=== PATIENT | female | born 1985 | race Caucasian/White ===

== ENCOUNTER 2017-02-09 09:16 | Emergency (ER) | payer BC ==
[2017-02-09 09:30] VITALS: TEMP 98.2; BMI 27.3
--- NOTE | 2017-02-09 09:49 | PDOC ---
History of Present Illness - General History Source: Patient Exam Limitations: No Limitations - History of Present Illness Initial Comments: CHIEF COMPLAINT: 31 y/o afebrile female with PMH anxiety here for admission to detox for alcohol. HISTORY OF PRESENT ILLNESS: The patient states she's had an alcoholic beverage every night for the past 6 months. The patient states she lost her job 2 weeks ago and is now drinking at least 1 bottle of alcohol per night. She is here because she would like detox for alcohol. She is a single mom and does not want to spiral out of control. She denies f/c, n/v/d, tremors, dizziness, DERAS, CP, SOB, palpitations, abd pain, back pain, hematuria, dysuria, seizures, suicidal ideations, homicidal ideations. She has never been to detox in the past and she has never been to an inpatient psychiatric facility in the past. She does see a psychiatrist regularly for her anxiety medications. Vital signs on arrival are within normal limits. REVIEW OF SYSTEMS: GENERAL/CONSTITUTIONAL: No fever/chills. No weakness. No weight change. HEAD, EYES, EARS, NOSE AND THROAT: No change in vision. No ear pain or discharge. No sore throat. CARDIOVASCULAR: No chest pain or shortness of breath. RESPIRATORY: No cough, wheezing, or hemoptysis. GASTROINTESTINAL: No abd pain, nausea, vomiting, diarrhea. GENITOURINARY: No dysuria, frequency, or change in urination. MUSCULOSKELETAL: No joint or muscle swelling or pain. No neck or back pain. SKIN: No rash or easy bruising. NEUROLOGIC: No headache, vertigo, loss of consciousness, or loss of sensation. PHYSICAL EXAM: GENERAL: The patient is awake, alert, and fully oriented, in no acute distress. She is very well appearing, ambulatory, in NAD or obvious discomfort. HEAD: Normal with no signs of trauma. ENT: Pupils equal, round and reactive to light, extraocular movements intact, sclera anicteric, conjunctiva clear. Neck supple. LUNGS: Clear to auscultation bilaterally. Normal excursion. No respiratory distress or use of accessory muscles. CV: RRR, S1/S2, no MRG. Cap refill < 2 sec. ABDOMEN: Soft, non-distended, non-tender even to deep palpation, no hepatomegaly or splenomegaly, no masses. EXTREMITIES: Normal range of motion, no edema. NEUROLOGICAL: Normal speech, normal gait. CN II-XII grossly intact. PSYCH: Normal mood, normal affect. SKIN: Warm, dry, normal turgor, no rashes or lesions noted. <Cindy Knight - Last Filed: 02/09/17 10:55> <Ashu Sharma - Last Filed: 02/12/17 07:45> - General Chief Complaint: Substance Abuse Stated Complaint: DETOX Time Seen by Provider: 02/09/17 09:40 Past History - Past Medical History Asthma: Yes Psychiatric Problems: Yes (ANXIETY,DEPRESSION) - Psycho/Social/Smoking Cessation Hx Suicidal Ideation: No Smoking History: Former smoker Have you smoked in the past 12 months: Yes Information on smoking cessation initiated: No Hx Alcohol Use: Yes (12 PACK OF BEER AND 1 BOTTLE OF WINE DAILYX2 WEEKS) Substance Use Type: Alcohol <Cindy Knight - Last Filed: 02/09/17 10:55> <Ashu Sharma - Last Filed: 02/12/17 07:45> - Past Medical History Allergies/Adverse Reactions: Allergies Allergy/AdvReac Type Severity Reaction Status Date / Time No Known Allergies Allergy Verified 02/09/17 09:23 Home Medications: Ambulatory Orders Alprazolam [Xanax] 1 mg PO QID 02/09/17 Escitalopram Oxalate [Lexapro -] 15 mg PO DAILY 02/09/17 Propranolol HCl 10 mg PO DAILY 02/09/17 *Physical Exam - Vital Signs Last Vital Signs Temp Pulse Resp BP Pulse Ox 98.2 F 69 19 121/63 99 02/09/17 09:23 02/09/17 09:23 02/09/17 09:23 02/09/17 09:23 02/09/17 09:23 <Cindy Knight - Last Filed: 02/09/17 10:55> - Vital Signs Last Vital Signs Temp Pulse Resp BP Pulse Ox 98.2 F 51 L 18 109/77 100 02/09/17 09:23 02/09/17 11:14 02/09/17 11:14 02/09/17 11:14 02/09/17 11:14 <Ashu Sharma - Last Filed: 02/12/17 07:45> ED Treatment Course - ADDITIONAL ORDERS Additional order review: 02/09/17 10:50 Urine Culture - Final Urine - Urine Clean Catch Lactobacillus Species <Ashu Sharma - Last Filed: 02/12/17 07:45> Medical Decision Making - Medical Decision Making A/P: 31 y/o afebrile female here for alcohol detox. Normal exam. Plan is as follows: 1. UA/hcg/culture/tox [facility]. [facility] do have female beds. Must be cleared by Dr. Coello first at [phone]. Left a message for Dr. Coello at 10:10am. Called Dr. Coello back and he accepts the patient for detox. Spoke with [facility] again and they said we can send her over. Will discharge and our security will escort the patient over to detox. <Cindy Knight - Last Filed: 02/09/17 10:55> - Medical Decision Making 02/12/17 07:45 The patient was seen and evaluated in conjunction with ANALI Knight under my direct supervision, ancillary studies were reviewed. I agree with the plan as outlined by ANALI Knight . <Ashu Sharma - Last Filed: 02/12/17 07:45> *DC/Admit/Observation/Transfer <Cindy Knight - Last Filed: 02/09/17 10:55> <Ashu Sharma - Last Filed: 02/12/17 07:45> Diagnosis at time of Disposition: Alcohol abuse Alcohol dependence Qualifiers: Substance use status: uncomplicated Qualified Code(s): F10.20 - Alcohol dependence, uncomplicated - Discharge Dispostion Disposition: I.P. ALCOHOL/SUBS ABUSE REHAB Condition at time of disposition: Good - Patient Instructions Printed Discharge Instructions: DI for Alcohol Abuse
[2017-02-09 11:04] LABS: URINE APPEARANCE CLEAR; URINE BILIRUBIN NEGATIVE (NEGATIVE); URINE BLOOD NEGATIVE (NEGATIVE); URINE COLOR STRAW; URINE GLUCOSE (UA) NEGATIVE (NEGATIVE); URINE KETONE NEGATIVE (NEGATIVE); URINE NITRITE NEGATIVE (NEGATIVE); URINE PROTEIN NEGATIVE (NEGATIVE); URINE UROBILINOGEN NEGATIVE E.U./dl (0.2-1.0)
[2017-02-09 11:06] LABS: URINE LEUK ESTERASE 3+ (NEGATIVE)
[2017-02-09 11:09] LABS: URINE BACTERIA MODERATE /hpf (NONE SEEN); URINE RBC 1 /hpf (0-3); URINE WBC 7 /hpf (3-5)
[2017-02-09 11:15] VITALS: BP 109/77; PULSE 51
[2017-02-09 12:06] LABS: URINE MARIJUANA THC NEGATIVE ng/ml (CUTOFF=50)
== END 2017-02-09 11:14 | disposition other institution (70) ==
LOC: JER 09:16
DX: F10.20 Alcohol dependence, uncomplicated (principal); F41.8 Other specified anxiety disorders; J45.909 Unspecified asthma, uncomplicated
CPT/HCPCS: 80307; 81003; 81015; 84703; 87077; 87086; 99282-25

== ENCOUNTER 2017-02-09 11:43 | Inpatient (IN) | payer BC, OTHER ==
[2017-02-09 15:02] VITALS: BMI 27.3
--- NOTE | 2017-02-09 16:16 | HP ---
CIWA Score - CIWA Score Nausea/Vomitin-Mild Nausea/No Vomiting Muscle Tremors: 4-Moderate,w/Arms Extend Anxiety: 3 Agitation: 4-Moderately Restless Paroxysmal Sweats: 3 Orientation: 0-Oriented Tacttile Disturbances: 0-None Auditory Disturbances: 0-None Visual Disturbances: 0-None Headache: 2-Mild CIWA-Ar Total Score: 17 Admission ROS BHS - HPI Chief Complaint: I am here to get detox and get the help I need. Allergies/Adverse Reactions: Allergies Allergy/AdvReac Type Severity Reaction Status Date / Time No Known Allergies Allergy Verified 02/09/17 15:49 History of Present Illness: pt is a31yr old female with a history of alcohol and xanax dependence seeking detox for treatment. Exam Limitations: No Limitations - Ebola screening Have you traveled outside of the country in the last 21 days: No Have you had contact with anyone from an Ebola affected area: No Have you been sick,other than usual withdrawal symptoms: No Do you have a fever: No - Review of Systems Constitutional: Chills, Diaphoresis, Loss of Appetite, Night Sweats, Unintentional Wgt. Loss EENT: reports: Nose Congestion Respiratory: reports: No Symptoms reported, Cough Cardiac: reports: No Symptoms Reported GI: reports: Diarrhea, Poor Appetite, Poor Fluid Intake, Indigestion, Other (IBS ) : reports: No Symptoms Reported Musculoskeletal: reports: Back Pain Integumentary: reports: Bruising, Flushing, Sweating Neuro: reports: Headache, Tingling, Tremors Endocrine: reports: Excessive Sweating, Flushing, Intolerance to Cold, Intolerance to Heat Hematology: reports: No Symptoms Reported Psychiatric: reports: Judgement Intact, Mood/Affect Appropiate, Orientated x3, Agitated, Anxious Other Systems: Reviewed and Negative Patient History - Patient Medical History Hx Anemia: No Hx Asthma: No Hx Chronic Obstructive Pulmonary Disease (COPD): No Hx Cancer: No Hx Cardiac Disorders: No Hx Congestive Heart Failure: No Hx Hypertension: No Hx Hypercholesterolemia: No Hx Pacemaker: No HX Cerebrovascular Accident: No Hx Seizures: No Hx Diabetes: No Hx Gastrointestinal Disorders: Yes (IBS) Hx Liver Disease: No Hx Genitourinary Disorders: No Hx Sexually Transmitted Disorders: No Hx Renal Disease (ESRD): No Hx Thyroid Disease: No Hx Human Immunodeficiency Virus (HIV): No (negative) Hx Hepatitis C: No (negative) Hx Depression: No Hx Suicide Attempt: No (denies) Hx Bipolar Disorder: No Hx Schizophrenia: No Other Medical History: anxiety - Patient Surgical History Past Surgical History: No Hx Neurologic Surgery: No Hx Cataract Extraction: No Hx Cardiac Surgery: No Hx Lung Surgery: No Hx Breast Surgery: Yes (breast augmentation due to breast infection 01/2016) Hx Breast Biopsy: No Hx Abdominal Surgery: No Hx Appendectomy: No Hx Cholecystectomy: No Hx Genitourinary Surgery: No Hx Section: No Hx Orthopedic Surgery: No Anesthesia Reaction: No - PPD History Previous Implant?: Yes Documented Results: Negative w/o proof Implanted On Prior R Admission?: No PPD to be Administered?: Yes - Reproductive History Patient is a Female of Child Bearing Age (11 -55 yrs old): No Last Menstrual Period: 01/26/17 Patient : No - Smoking Cessation Smoking history: Current every day smoker Have you smoked in the past 12 months: Yes Aproximately how many cigarettes per day: 1 Hx Chewing Tobacco Use: No Initiated information on smoking cessation: Yes 'Breaking Loose' booklet given: 02/09/17 - Substance & Tx. History Hx Alcohol Use: Yes Hx Substance Use: Yes Substance Use Type: Alcohol, Prescribed, Tranquilizers Hx Substance Use Treatment: Yes - Substances Abused Alcohol-beer/wine/whisky Route: Oral Frequency: Daily Amount used: 2-6 pks./1 pt. Age of first use: 20 Date of Last Use: 02/08/17 Family Disease History - Family Disease History Family History: Denies Admission Physical Exam BHS - Vital Signs Vital Signs: Vital Signs - 24 hr 02/09/17 15:00 Temperature 96.9 F L Pulse Rate 75 Respiratory 20 Rate Blood Pressure 103/67 - Physical General Appearance: Yes: No Apparent Distress, Appropriately Dressed, Tremorous , Irritable, Sweating, Anxious HEENTM: Yes: Hearing grossly Normal, Nasal Congestion, Rhinorrhea Respiratory: Yes: Lungs Clear, Normal Breath Sounds, No Respiratory Distress Neck: Yes: No masses,lesions,Nodules Breast: Yes: Within Normal Limits Cardiology: Yes: Regular Rhythm, Regular Rate, S1, S2 Abdominal: Yes: Normal Bowel Sounds, Non Tender, Soft Genitourinary: Yes: Within Normal Limits Back: Yes: Normal Inspection Musculoskeletal: Yes: full range of Motion, Back pain Extremities: Yes: Normal Capillary Refill, Non-Tender, Tremors Neurological: Yes: Fully Oriented, Alert, Normal Response Integumentary: Yes: Normal Color, Diaphoresis Lymphatic: Yes: Within Normal Limits - Diagnostic (1) Alcohol dependence with uncomplicated withdrawal Current Visit: Yes Status: Chronic (2) Nicotine dependence Current Visit: Yes Status: Chronic Qualifiers: Nicotine product type: cigarettes Substance use status: uncomplicated Qualified Code(s): F17.210 - Nicotine dependence, cigarettes, uncomplicated (3) Anxiety Current Visit: Yes Status: Chronic Cleared for Admission [facility] - Detox or Rehab [facility] Level of Care: Medically Managed Detox Regimen/Protocol: Librium [facility] Breath Alcohol Content Breath Alcohol Content: 0 Urine Pregancy Test - Result Urine Test Results: Negative- NO Line Present Urine Drug Screen - Results Drug Screen Negative: No Urine Drug Screen Results: BZO-Benzodiazepines
[2017-02-09] MEDS ORDERED: MAG HYDROX/AL HYDROX/SIMETH 30 ML UNIT-DOSE CUP PO PRN (16:27)
[2017-02-09] MEDS ORDERED: hydrOXYzine PAMOATE 50 MG CAPSULE (FP) PO PRN (16:27)
[2017-02-09] MEDS ORDERED: P-EPHED 60MG/TRIPROLIDI 2.5MG TABLET PO PRN (16:27)
[2017-02-09] MEDS ORDERED: MENTHOL/PHENOL 1 EACH UD MM PRN (16:27)
[2017-02-09] MEDS ORDERED: guaiFENesin/D-METHORPHAN HB 10 ML UNIT-DOSE CUPS PO PRN (16:27)
[2017-02-09] MEDS ORDERED: ACETAMINOPHEN 325 MG TABLET (FP) PO PRN (16:27)
[2017-02-09] MEDS ORDERED: IBUPROFEN 400 MG TABLET (FP) PO PRN (16:27)
[2017-02-09] MEDS ORDERED: chlordiazePOXIDE HCL 25 MG CAPSULE PO PRN (16:27)
[2017-02-09] MEDS ORDERED: MAGNESIUM HYDROX 2400MG/30ML ORAL SUSPENSION 30 ML CUP PO PRN (16:27)
[2017-02-09] MEDS ORDERED: LOPERAMIDE HCL 2 MG CAPSULE PO PRN (16:27)
[2017-02-09] MEDS ORDERED: MAGNESIUM CITRATE 300 ML BOTTLE PO PRN (16:27)
[2017-02-09] MEDS ORDERED: chlordiazePOXIDE HCL 25 MG CAPSULE PO ONE (17:45)
[2017-02-09] MEDS: chlordiazePOXIDE HCL 25 MG CAPSULE PO SCH ×2 (19:19→22:35)
[2017-02-09] MEDS ORDERED: THIAMINE HCL 100 MG TABLET (FP) PO SCH (22:00)
[2017-02-09] MEDS ORDERED: diphenhydrAMINE HCL 50 MG CAPSULE PO PRN (22:00)
[2017-02-09] MEDS: NICOTINE POLACRILEX 4 MG GUM BUC PRN (22:43)
[2017-02-09 23:04] LABS: URINE APPEARANCE CLEAR; URINE BILIRUBIN NEGATIVE (NEGATIVE); URINE BLOOD NEGATIVE (NEGATIVE); URINE COLOR STRAW; URINE GLUCOSE (UA) NEGATIVE (NEGATIVE); URINE KETONE NEGATIVE (NEGATIVE); URINE NITRITE NEGATIVE (NEGATIVE); URINE PROTEIN NEGATIVE (NEGATIVE); URINE UROBILINOGEN NEGATIVE E.U./dl (0.2-1.0)
[2017-02-09 23:07] LABS: URINE LEUK ESTERASE 1+ (NEGATIVE)
[2017-02-09 23:10] LABS: URINE BACTERIA FEW /hpf (NONE SEEN); URINE RBC 1 /hpf (0-3); URINE WBC 42 /hpf (3-5)
[2017-02-10] MEDS: chlordiazePOXIDE HCL 25 MG CAPSULE PO SCH ×2 (07:02→10:57)
[2017-02-10] MEDS: NICOTINE POLACRILEX 4 MG GUM BUC PRN ×3 (07:04→14:45)
[2017-02-10] MEDS ORDERED: PRENATAL VITAMINS W/ FOLIC ACID TABLET (FP) PO SCH (10:00)
[2017-02-10] MEDS ORDERED: NICOTINE 7 MG/24 HOURS TOPICAL PATCH TD SCH (10:00)
[2017-02-10 10:19] LABS: MCHC 33.9 g/dl (32.0-36.0); MEAN CELL VOLUME 91.5 fl (80-96); MEAN PLT VOLUME 7.6 fl (7.5-11.1); PLATELET COUNT 342 K/MM3 (134-434); RDW 12.3 % (11.6-15.6); WHITE BLOOD COUNT 6.6 K/mm3 (4.0-10.0)
[2017-02-10 10:44] LABS: ALK PHOS 86 U/L (45-117); ANION GAP 9 (8-16); BILIRUBIN,TOTAL 0.7 mg/dL (0.2-1.0); CALCIUM 9.6 mg/dL (8.5-10.1); CO2 30 mmol/L (21-32); COCKROFT - GAULT 118.8725; CREATININE 0.9 mg/dL (0.55-1.02); GLUCOSE,RANDOM 123 mg/dL (74-106); SGOT/AST 18 U/L (15-37); SGPT/ALT 34 U/L (12-78); TOT PROT 7.4 g/dl (6.4-8.2)
--- NOTE | 2017-02-10 14:07 | CONSULT ---
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 Substance Abuse History: - Smoking Cessation. Smoking history: Current every day smoker. Have you smoked in the past 12 months: Yes. Aproximately how many cigarettes per day: 1. Hx Chewing Tobacco Use: No. Initiated information on smoking cessation: Yes. 'Breaking Loose' booklet given: 02/09/17. - Substance & Tx. History. Hx Alcohol Use: Yes. Hx Substance Use: Yes. Substance Use Type : Alcohol, Prescribed, Tranquilizers. Hx Substance Use Treatment: Yes. - Substances Abused. Alcohol-beer/wine/whisky. Route: Oral. Frequency: Daily. Amount used: 2-6 pks./1 pt. Age of first use: 20. Date of Last Use: . Confirmed by patient. Medical History: History of irritable bowel syndrome. Psychiatric History: No history of psychiatric hospitalizations.Ms Coronel has been disagnosed with MDD and Anxiety Disorder.She sees a private psychiatrist for medication management (lexapro 15 mg/day + xanax 1 mg po qid + propanolol 10 mg po bid).Patient states that she has made the decision to abstain from taking psychotropic medications.She denies history of suicide attempts. Physical/Sexual Abuse/Trauma History: Patient denies. Additional Comment: Urine Drug Screen Results: BZO-Benzodiazepines.Noted. Mental Status Exam - Mental Status Exam Alert and Oriented to: Time, Place, Person Cognitive Function: Good Patient Appearance: Well Groomed Mood: Hopeful, Euthymic Affect: Appropriate, Normal Range Patient Behavior: Fatigued, Appropriate, Cooperative Speech Pattern: Clear Voice Loudness: Normal Thought Process: Intact, Goal Oriented Thought Disorder: Not Present Hallucinations: Denies Suicidal Ideation: Denies Homicidal Ideation: Denies Insight/Judgement: Poor Sleep: Fair Appetite: Good Muscle strength/Tone: Normal Gait/Station: Normal Psychiatric Findings - Problem List ([place] 1, 2,3) (1) Alcohol dependence with uncomplicated withdrawal Current Visit: Yes Status: Acute (2) Nicotine dependence Current Visit: Yes Status: Acute Qualifiers: Nicotine product type: cigarettes Substance use status: uncomplicated Qualified Code(s): F17.210 - Nicotine dependence, cigarettes, uncomplicated (3) Anxiety disorder Current Visit: Yes Status: Chronic (4) Depressive disorder Current Visit: Yes Status: Chronic (5) Insomnia Current Visit: Yes Status: Acute - Initial Treatment Plan Initial Treatment Plan: Psychoeducation.Detoxification.Patient declines to take any hypnotic or psychotropic medication.Observation.
[2017-02-10 14:40] VITALS: BP 111/61; PULSE 74; TEMP 97.9
--- NOTE | 2017-02-10 15:05 | PN ---
[facility] CIWA - CIWA Score Nausea/Vomitin Muscle Tremors: 3 Anxiety: 3 Agitation: 2 Paroxysmal Sweats: 1-Minimal Palms Moist Orientation: 0-Oriented Tacttile Disturbances: 1-Very Mild Itch/Numbness Auditory Disturbances: 1-Very Mild Visual Disturbances: 1-Very Mild Sensitivity Headache: 2-Mild CIWA-Ar Total Score: 17 S Progress Note (SOAP) Subjective: ALERT,IRRITABLE,ANXIOUS,INTERRUPTED SLEEP,TREMOR, Objective: 02/10/17 15:02 Vital Signs Temperature 97.9 F 02/10/17 14:39 Pulse Rate 74 02/10/17 14:39 Respiratory Rate 16 02/10/17 14:39 Blood Pressure 111/61 02/10/17 14:39 O2 Sat by Pulse Oximetry (%) EKG SINUS BRADYCARDIA RATE 50/MIN,INVERTED T IN V1,V2 NO CHEST AIN,NO SOB,NO DIZZINESS Laboratory Last Values WBC 6.6 K/mm3 (4.0-10.0) 02/10/17 06:05 RBC 4.38 M/mm3 (3.60-5.2) 02/10/17 06:05 Hgb 13.6 GM/dL (10.7-15.3) 02/10/17 06:05 Hct 40.0 % (32.4-45.2) 02/10/17 06:05 MCV 91.5 fl (80-96) 02/10/17 06:05 MCHC 33.9 g/dl (32.0-36.0) 02/10/17 06:05 RDW 12.3 % (11.6-15.6) 02/10/17 06:05 Plt Count 342 K/MM3 (134-434) 02/10/17 06:05 MPV 7.6 fl (7.5-11.1) 02/10/17 06:05 Sodium 141 mmol/L (136-145) 02/10/17 06:05 Potassium 5.0 mmol/L (3.5-5.1) 02/10/17 06:05 Chloride 102 mmol/L (98-107) 02/10/17 06:05 Carbon Dioxide 30 mmol/L (21-32) 02/10/17 06:05 Anion Gap 9 (8-16) 02/10/17 06:05 BUN 13 mg/dL (7-18) 02/10/17 06:05 Creatinine 0.9 mg/dL (0.55-1.02) 02/10/17 06:05 Creat Clearance w eGFR > 60 (>60) 02/10/17 06:05 Random Glucose 123 mg/dL (74-106) H 02/10/17 06:05 Calcium 9.6 mg/dL (8.5-10.1) 02/10/17 06:05 Total Bilirubin 0.7 mg/dL (0.2-1.0) 02/10/17 06:05 AST 18 U/L (15-37) 02/10/17 06:05 ALT 34 U/L (12-78) 02/10/17 06:05 Alkaline Phosphatase 86 U/L (45-117) 02/10/17 06:05 Total Protein 7.4 g/dl (6.4-8.2) 02/10/17 06:05 Albumin 4.0 g/dl (3.4-5.0) 02/10/17 06:05 Urine Color Straw 02/09/17 20:33 Urine Appearance Clear 02/09/17 20:33 Urine pH 8.0 (5.0-8.0) 02/09/17 20:33 Urine Protein Negative (NEGATIVE) 02/09/17 20:33 Urine Glucose (UA) Negative (NEGATIVE) 02/09/17 20:33 Urine Ketones Negative (NEGATIVE) 02/09/17 20:33 Urine Blood Negative (NEGATIVE) 02/09/17 20:33 Urine Nitrite Negative (NEGATIVE) 02/09/17 20:33 Urine Bilirubin Negative (NEGATIVE) 02/09/17 20:33 Urine Urobilinogen Negative E.U./dl (0.2-1.0) 02/09/17 20:33 Ur Leukocyte Esterase 1+ (NEGATIVE) H D 02/09/17 20:33 Urine RBC 1 /hpf (0-3) 02/09/17 20:33 Urine WBC 42 /hpf (3-5) 02/09/17 20:33 Ur Epithelial Cells Rare /hpf (FEW) 02/09/17 20:33 Urine Bacteria Few /hpf (NONE SEEN) 02/09/17 20:33 RPR Titer Nonreactive (NONREACTIVE) 02/10/17 06:05 Assessment: 02/10/17 15:04 WITHDRAWAL SYMPTOM Plan: CONTINUE DETOX,INITIAL GLUCOSE IS 123,FBS IN AM,REPEAT UA,ENCOURAGE ORAL FLUID
[2017-02-10] MEDS ORDERED: chlordiazePOXIDE HCL 25 MG CAPSULE PO SCH (17:00)
--- NOTE | 2017-02-10 19:04 | PN ---
S Progress Note Note: patient did not want to complete treatment,signed release ama,seen by counselor
--- NOTE | 2017-02-10 19:09 | DS ---
[facility] Detox Discharge Summary Admission Date: 02/09/17 Discharge Date: 02/10/17 - History Present History: Alcohol Dependence Additional Comments: patient did not want to complete treatment,signed release ama,seen by counselor Pertinent Past History: nicotine dependence insomnia anxiety and depression - Physical Exam Results Vital Signs: Vital Signs Temperature 97.9 F 02/10/17 14:39 Pulse Rate 74 02/10/17 14:39 Respiratory Rate 16 02/10/17 14:39 Blood Pressure 111/61 02/10/17 14:39 O2 Sat by Pulse Oximetry (%) Pertinent Admission Physical Exam Findings: withdrawal symptom - Medication Discharge Medications: Ambulatory Orders Alprazolam [Xanax] 1 mg PO QID 02/09/17 Escitalopram Oxalate [Lexapro -] 15 mg PO DAILY 02/09/17 Propranolol HCl 10 mg PO DAILY 02/09/17 - Diagnosis (1) Alcohol dependence with uncomplicated withdrawal Status: Acute (2) Insomnia Status: Acute (3) Nicotine dependence Status: Acute Qualifiers: Nicotine product type: cigarettes Substance use status: uncomplicated Qualified Code(s): F17.210 - Nicotine dependence, cigarettes, uncomplicated (4) Anxiety disorder Status: Chronic (5) Depressive disorder Status: Chronic - AMA Did Patient Leave Against Medical Advice: Yes
[2017-02-11 13:43] LABS: HIV 1 & 2 AB NEGATIVE; HIV 1 AGp24 NEGATIVE
[2017-02-11] MEDS ORDERED: chlordiazePOXIDE 5 MG CAPSULE PO SCH (17:00)
--- NOTE | 2017-02-12 13:05 | EKG ---
Test Reason : Blood Pressure : / mmHG Vent. Rate : 042 BPM Atrial Rate : 042 BPM P-R Int : 148 ms QRS Dur : 088 ms QT Int : 476 ms P-R-T Axes : 035 074 058 degrees QTc Int : 397 ms MARKED SINUS BRADYCARDIA CANNOT RULE OUT ANTERIOR INFARCT , AGE UNDETERMINED ABNORMAL ECG WHEN COMPARED WITH ECG OF 09-FEB-2017 18:36, NO SIGNIFICANT CHANGE WAS FOUND Confirmed by ISA FREGOSO MD ([id number]) on 02/12/2017 1:04:58 PM Referred By: Confirmed By:ISA FREGOSO MD
--- NOTE | 2017-02-12 13:05 | EKG ---
Test Reason : Blood Pressure : / mmHG Vent. Rate : 050 BPM Atrial Rate : 050 BPM P-R Int : 144 ms QRS Dur : 082 ms QT Int : 496 ms P-R-T Axes : 037 057 041 degrees QTc Int : 452 ms SINUS BRADYCARDIA LOW VOLTAGE QRS ABNORMAL ECG NO PREVIOUS ECGS AVAILABLE Confirmed by ISA FREGOSO MD ([id number]) on 02/12/2017 1:05:39 PM Referred By: Confirmed By:ISA FREGOSO MD
[2017-02-12] MEDS ORDERED: chlordiazePOXIDE HCL 10 MG CAPSULE PO SCH (17:00)
== END 2017-02-10 17:20 | disposition left against medical advice (07) | DRG 894 ==
LOC: YASAS 11:43 → Y6N 17:39
PROVIDERS: ADMIT Internal Medicine Addiction Medicine; ATTEND Internal Medicine Addiction Medicine
PROC: HZ2ZZZZ Detoxification Services for Substance Abuse Treatment (ICD-10-PCS; principal; 2017-02-10)
DX: F10.230 Alcohol dependence with withdrawal, uncomplicated (principal); F17.210 Nicotine dependence, cigarettes, uncomplicated; F41.9 Anxiety disorder, unspecified; G47.00 Insomnia, unspecified; F32.9 Major depressive disorder, single episode, unspecified
CPT/HCPCS: 36415; 80053; 81003; 81015; 85027; 86593; 87389; 93005; 93010